=== PATIENT | male | born 1980 | race Two or more races ===

== ENCOUNTER 2018-09-03 10:26 | Emergency (ER) | payer SELFPAY ==
[~2018-09-03] VITALS: Ht 172.7 cm; Wt 68.0 kg
[2018-09-03 11:40] VITALS: BP 132/92
--- NOTE | 2018-09-03 12:15 | PHYS DOC ---
Past Medical History Past Medical History: No Pertinent History Past Surgical History: No Surgical History Alcohol Use: Heavy Additional Information: 12 PACK OF BEER A DAY Drug Use: Cocaine Social History Narrative: LAST USED LAST WEEK Adult General Chief Complaint Chief Complaint: FINGER INJURY HPI HPI Patient is a 37 year old female presents to ED complaining of foreign body to right fourth finger �3 weeks ago. Patient states that he picked up garbage. States he does not know whose garbage it was. States that he thinks he got a metal piece stuck in his right distal fourth finger. States that it was fine but since the injury he's had pus swelling to right distal fourth finger. Describes the pain as sharp. Rates the pain as 4 out of 10. Reports unsure of an actual FB, states he just knows he was stuck by something. Denies nail bed injury, decreased range of motion, paresthesias, redness, weakness, fever, chills. Review of Systems Review of Systems Constitutional: Denies fever or chills [] Eyes: Denies change in visual acuity, redness, or eye pain [] HENT: Denies nasal congestion or sore throat [] Respiratory: Denies cough or shortness of breath [] Cardiovascular: No additional information not addressed in HPI [] GI: Denies abdominal pain, nausea, vomiting, bloody stools or diarrhea [] : Denies dysuria or hematuria [] Musculoskeletal: Complains of right 4th finger pain. [] Integument: Denies rash or skin lesions [] Neurologic: Denies headache, focal weakness or sensory changes [] All other systems were reviewed and found to be within normal limits, except as documented in this note. Allergies Allergies Allergies Coded Allergies Type Severity Reaction Last Updated Verified No Known Drug Allergies 09/03/18 No Physical Exam Physical Exam Constitutional: Well developed, well nourished, no acute distress, non-toxic appearance. [] HENT: Normocephalic, atraumatic Skin: Warm, dry, no erythema, no rash. [] Back: No tenderness, no CVA tenderness. [] Extremities: mild distal volar round 1 cm 4th finger blister. mild tenderness, no cyanosis, no clubbing, ROM intact, no edema. No palpable FB. No erythema, warmth or red streaking. [] Neurologic: Alert and oriented X 3, normal motor function, normal sensory function, no focal deficits noted. [] Psychologic: Affect normal, judgement normal, mood normal. [] Current Patient Data Vital Signs Vital Signs Date Time Temp Pulse Resp B/P (MAP) Pulse Ox O2 Delivery O2 Flow Rate FiO2 09/03/18 11:40 98.1 96 18 132/92 (105) 98 Room Air 98.1 EKG EKG [] Radiology/Procedures Radiology/Procedures []PROCEDURE: FINGER(S) RIGHT Examination: 3 views of the right fourth digit HISTORY: History of foreign body COMPARISON: None available. Findings: The alignment of the fourth metacarpophalangeal, interphalangeal joints grossly appears unremarkable. There is no acute fracture identified. No obvious radiopaque foreign body is evident. IMPRESSION: No acute osseous findings. Course & Med Decision Making Course & Med Decision Making Pertinent Labs and Imaging studies reviewed. (See chart for details) []No foreign body seen to imaging of right fourth finger. Patient's blister is open and draining. No FB palpated or expressed. We'll cover with antibiotics outpatient. Discussed symptomatic treatment and wound care. Patient to follow-up for reevaluation in 3 days. Provided contact information/education. Discussed reasons to return to the ED. Patient understands and agrees with plan. Dragon Disclaimer Dragon Disclaimer This electronic medical record was generated, in whole or in part, using a voice recognition dictation system. Departure Departure Impression: Primary Impression: Finger, blister, infected Disposition: 01 HOME, SELF-CARE Condition: IMPROVED Referrals: NO PCP (PCP) TERRENCE JACKSON MD Patient Instructions: Blisters Scripts Sulfamethoxazole/Trimethoprim (BACTRIM DS TABLET) 1 Each Tablet 1 TAB PO BID, #20 TAB Prov: KISHORE SETH 09/03/18 KISHORE SETH Sep 03, 2018 12:15
--- NOTE | 2018-09-03 12:33 | RAD ---
Examination: 3 views of the right fourth digit HISTORY: History of foreign body COMPARISON: None available. Findings: The alignment of the fourth metacarpophalangeal, interphalangeal joints grossly appears unremarkable. There is no acute fracture identified. No obvious radiopaque foreign body is evident. IMPRESSION: No acute osseous findings. Electronically signed by: Jimmie Cox MD (09/03/2018 12:31 PM) [id number]
[2018-09-03] MEDS ORDERED: SULF1TAB24 PO (12:57)
== END 2018-09-03 13:17 | disposition home or self-care (01) ==
LOC: ER 10:26
DX: S60.424A Blister (nonthermal) of right ring finger, initial encounter (principal); L08.9 Local infection of the skin and subcutaneous tissue, unspecified; W26.8XXA Contact with other sharp object(s), not elsewhere classified, initial encounter; Y93.89 Activity, other specified; Y92.89 Other specified places as the place of occurrence of the external cause; Y99.8 Other external cause status; F10.20 Alcohol dependence, uncomplicated; Y90.9 Presence of alcohol in blood, level not specified
CPT/HCPCS: 73140; 99284